=== PATIENT | male | born 1985 | race Hispanic/Latino ===

== ENCOUNTER 2017-08-10 09:27 | Emergency (ER) | payer SELFPAY ==
[2017-08-10] MEDS ORDERED: Lidocaine 1% w/Epinephrine 1:200K 30 ML VIAL ONE (09:32)
[2017-08-10] MEDS ORDERED: Bacitracin Zinc 1 Packet ONE (09:33)
[2017-08-10] MEDS ORDERED: Adacel (T-DAP) 0.5 ML VIAL ONE (09:33)
== END 2017-08-10 10:08 | disposition home or self-care (01) ==
LOC: ERS 09:27
DX: S51.812A Laceration without foreign body of left forearm, initial encounter (principal); W26.0XXA Contact with knife, initial encounter; Y92.69 Other specified industrial and construction area as the place of occurrence of the external cause
CPT/HCPCS: 12001; 90471; 90715